=== PATIENT | male | born 1965 | race Caucasian/White ===

== ENCOUNTER 2021-12-11 10:08 | Emergency (ER) | payer OTHER ==
--- NOTE | 2021-12-11 10:18 | ERPHSYRPT ---
- History of Present Illness Time Seen by Provider: 12/11/21 10:17 Source: patient Exam Limitations: no limitations Physician History: This is a 56-year-old obese diabetic white male has a history of peripheral neuropathy and has been on Metformin for approximately 1 month and was in our parking lot at the hospital when he fell on 2 occasions. Patient states that he does not know why he has been doing this for approximately 3 months intermittently. He was here today to see the access services librarian for evaluation of his bilateral feet peripheral neuropathy. The only new medication is Metformin that he is been on for approximately 1 month. Patient denies chest pain. He denies shortness of breath. He has no abdominal pain. He has no headache. Patient does not recall all the events after he fell. He did hit his head. He denies neck pain. He denies back pain. In the distant past he said he had a cardiac catheterization. He did not receive any stents. He said no heart surgery. He does not see a extruder tender. Witnessed: bystander Prior Episodes: single episode today, recent history Timing/Duration: today Precipitating Factors: unknown Context: standing Loss of Consciousness: no loss of consciousness Charcter of event(s): other (Syncopal episode) Allergies/Adverse Reactions: acetaminophen [From Lortab] Allergy (Mild, Verified 12/11/21 10:22) hydrocodone [From Lortab] Allergy (Mild, Verified 12/11/21 10:22) Travel Risk - International Travel Have you traveled outside of the country in past 3 weeks: No - Coronavirus Screening Are you exhibiting any of the following symptoms?: No Close contact with a COVID-19 positive Pt in past 14-21 Days: No - Past Medical History Pertinent Past Medical History: Yes - Past Surgical History Past Surgical History: Yes Significant Family History: no pertinent family hx - Review of Systems Constitutional: Weakness Eyes: No Symptoms Ears, Nose, & Throat: No Symptoms Respiratory: No Symptoms Cardiac: No Symptoms Abdominal/Gastrointestinal: No Symptoms Genitourinary Symptoms: No Symptoms Musculoskeletal: No Symptoms Skin: No Symptoms Neurological: No Symptoms Psychological: No Symptoms Endocrine: No Symptoms Hematologic/Lymphatic: No Symptoms Immunological/Allergic: No Symptoms All Other Systems: Reviewed and Negative Physical Exam - Nursing Vital Signs Nursing Vital Signs: Initial Vital Signs Temperature 98.0 F 12/11/21 10:08 Pulse Rate 101 H 12/11/21 10:08 Respiratory Rate 18 12/11/21 10:08 Blood Pressure 106/69 12/11/21 10:08 O2 Sat by Pulse Oximetry 96 12/11/21 10:08 Pain Scale Pain Intensity 2 - [place] Coma Scale Best Eye Response (Gracie): (4) open spontaneously Best Verbal Response (Gracie): (5) oriented Best Motor Response ([place]): (6) obeys commands [place] Total: 15 - Physical Exam General Appearance: no apparent distress, alert, anxiety, obese Eye Exam: bilateral eye: normal inspection, PERRL, EOMI Ears, Nose, Throat Exam: normal ENT inspection, moist mucous membranes Neck Exam: normal inspection, non-tender, supple, full range of motion Respiratory: normal breath sounds, lungs clear, airway intact, No chest tenderness, No respiratory distress Cardiovascular: regular rate/rhythm, normal heart sounds, normal peripheral pulses Gastrointestinal: soft, normal bowel sounds, No tenderness, No guarding Rectal Exam: not done Back Exam: normal inspection, normal range of motion, No CVA tenderness Extremity Exam: normal inspection, normal range of motion, pelvis stable Mental Status: alert, oriented x 3, 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 Exam: normal hearing, normal speech, PERRL, tongue midline Coordination/Gait: normal finger to nose Motor/Sensory: no motor deficit, no sensory deficit, no pronator drift Skin Exam: abrasion (Right forehead) SpO2 Interpretation: normal O2 Delivery: Room Air - Course Nursing assessment & vital signs reviewed: Yes Ordered Tests: Active Orders 24 hr Category Date Time Status Minister Of Religion STAT Care 12/11/21 10:22 Active Clean Catch Urine Specimen STAT Care 12/11/21 10:21 Active EKG-ER Only STAT Care 12/11/21 10:21 Active IV Insertion STAT Care 12/11/21 10:21 Active POCT Glucose Check STAT Care 12/11/21 10:21 Active Pulse Oximetry (ED) STAT Care 12/11/21 10:21 Active HEAD WITHOUT CONTRAST [CT] Stat Exams 12/11/21 10:22 Completed CBC W DIFF Stat Lab 12/11/21 10:30 Completed CMP Stat Lab 12/11/21 10:30 Completed ETHYL ALCOHOL Stat Lab 12/11/21 10:30 Completed TROPONIN Q3H Lab 12/11/21 10:30 Completed TROPONIN Q3H Lab 12/11/21 13:30 Received TROPONIN Q3H Lab 12/11/21 16:30 Ordered TROPONIN Q3H Lab 12/11/21 19:30 Ordered TROPONIN Q3H Lab 12/11/21 22:30 Ordered UA W/RFX UR CULTURE Stat Lab 12/11/21 12:15 Completed Urine Triage Profile Stat Lab 12/11/21 12:11 Completed Lab/Rad Data: Laboratory Result Diagrams 12/11/21 10:30 12/11/21 10:30 Laboratory Results 12/11/21 12/11/21 12/11/21 Range/Units 12:15 12:11 10:30 WBC (4.0-10.5) K/mm3 RBC (4.1-5.6) M/mm3 Hgb (12.5-18.0) gm/dl Hct (42-50) % MCV (78-100) fl MCH (26-32) pg MCHC (32-36) g/dl RDW (11.5-14.0) % Plt Count (150-450) K/mm3 MPV (7.5-11.0) fl Gran % (36.0-66.0) % Eos # (Auto) (0-0.5) Absolute Lymphs (auto) (1.0-4.6) Absolute Monos (auto) (0.0-1.3) Lymphocytes % (24.0-44.0) % Monocytes % (0.0-12.0) % Eosinophils % (0.00-5.0) % Basophils % (0.0-0.4) % Absolute Granulocytes (1.4-6.9) Basophils # (0-0.4) Sodium (137-145) mmol/L Potassium (3.5-5.1) mmol/L Chloride (98-107) mmol/L Carbon Dioxide (22-30) mmol/L Anion Gap (5-15) MEQ/L BUN (9-20) mg/dL Creatinine (0.66-1.25) mg/dL Estimated GFR ML/MIN Glucose (74-106) mg/dL Calcium (8.4-10.2) mg/dL Total Bilirubin (0.2-1.3) mg/dL AST (17-59) U/L ALT (0-50) U/L Alkaline Phosphatase (38-126) U/L Troponin I < 0.012 (0.000-0.034) ng/mL Serum Total Protein (6.3-8.2) g/dL Albumin (3.5-5.0) g/dL Urine Color [place] (YELLOW) Urine Appearance SLIGHTLY CLOUDY (CLEAR) Urine pH 5.0 (5-6) Ur Specific [place] 1.027 (1.005-1.025) Urine Protein 30 (Negative) Urine Ketones SMALL (NEGATIVE) Urine Blood NEGATIVE (0-5) Har[place]/ul Urine Nitrite NEGATIVE (NEGATIVE) Urine Bilirubin NEGATIVE (NEGATIVE) Urine Urobilinogen NEGATIVE (0-1) mg/dL Ur Leukocyte Esterase NEGATIVE (NEGATIVE) Urine WBC (Auto) 0-2 (0-5) /HPF Urine RBC (Auto) NONE SEEN (0-2) /HPF U Hyaline Cast (Auto) 6-10 (0-2) /LPF U Epithel Cells (Auto) NONE (FEW) /HPF Urine Bacteria (Auto) NONE (NEGATIVE) /HPF Urine Mucus (Auto) SLIGHT (NEGATIVE) /HPF Urine Culture Reflexed NO (NO) Urine Glucose NEGATIVE (NEGATIVE) mg/dL Urine Opiates Level NEGATIVE (NEGATIVE) Ur Methadone NEGATIVE (NEGATIVE) Urine Barbiturates NEGATIVE (NEGATIVE) Ur Phencyclidine (PCP) NEGATIVE (NEGATIVE) Urine Amphetamine NEGATIVE (NEGATIVE) U Benzodiazepine Level NEGATIVE (NEGATIVE) Urine Cocaine NEGATIVE (NEGATIVE) Urine Marijuana (THC) NEGATIVE (NEGATIVE) Ethyl Alcohol (0-10) mg/dL 12/11/21 12/11/21 Range/Units 10:30 10:30 WBC 4.6 (4.0-10.5) K/mm3 RBC 4.60 (4.1-5.6) M/mm3 Hgb 14.8 (12.5-18.0) gm/dl Hct 43.0 (42-50) % MCV 93.5 (78-100) fl MCH 32.2 H (26-32) pg MCHC 34.4 (32-36) g/dl RDW 12.6 (11.5-14.0) % Plt Count 266 (150-450) K/mm3 MPV 9.5 (7.5-11.0) fl Gran % 45.8 (36.0-66.0) % Eos # (Auto) 0.10 (0-0.5) Absolute Lymphs (auto) 2.07 (1.0-4.6) Absolute Monos (auto) 0.32 (0.0-1.3) Lymphocytes % 44.7 H (24.0-44.0) % Monocytes % 6.9 (0.0-12.0) % Eosinophils % 2.2 (0.00-5.0) % Basophils % 0.4 (0.0-0.4) % Absolute Granulocytes 2.12 (1.4-6.9) Basophils # 0.02 (0-0.4) Sodium 140 (137-145) mmol/L Potassium 4.8 (3.5-5.1) mmol/L Chloride 104 (98-107) mmol/L Carbon Dioxide 20 L (22-30) mmol/L Anion Gap 20.6 H (5-15) MEQ/L BUN 17 (9-20) mg/dL Creatinine 1.19 (0.66-1.25) mg/dL Estimated GFR > 60.0 ML/MIN Glucose 113 H (74-106) mg/dL Calcium 9.2 (8.4-10.2) mg/dL Total Bilirubin 0.40 (0.2-1.3) mg/dL AST 68 H (17-59) U/L ALT 71 H (0-50) U/L Alkaline Phosphatase 113 (38-126) U/L Troponin I (0.000-0.034) ng/mL Serum Total Protein 7.5 (6.3-8.2) g/dL Albumin 4.7 (3.5-5.0) g/dL Urine Color (YELLOW) Urine Appearance (CLEAR) Urine pH (5-6) Ur Specific [place] (1.005-1.025) Urine Protein (Negative) Urine Ketones (NEGATIVE) Urine Blood (0-5) Har[place]/ul Urine Nitrite (NEGATIVE) Urine Bilirubin (NEGATIVE) Urine Urobilinogen (0-1) mg/dL Ur Leukocyte Esterase (NEGATIVE) Urine WBC (Auto) (0-5) /HPF Urine RBC (Auto) (0-2) /HPF U Hyaline Cast (Auto) (0-2) /LPF U Epithel Cells (Auto) (FEW) /HPF Urine Bacteria (Auto) (NEGATIVE) /HPF Urine Mucus (Auto) (NEGATIVE) /HPF Urine Culture Reflexed (NO) Urine Glucose (NEGATIVE) mg/dL Urine Opiates Level (NEGATIVE) Ur Methadone (NEGATIVE) Urine Barbiturates (NEGATIVE) Ur Phencyclidine (PCP) (NEGATIVE) Urine Amphetamine (NEGATIVE) U Benzodiazepine Level (NEGATIVE) Urine Cocaine (NEGATIVE) Urine Marijuana (THC) (NEGATIVE) Ethyl Alcohol 95 H (0-10) mg/dL - Progress Progress: improved, re-examined Progress Note: 12/11/21 11:00 CAT scan of the head without contrast shows no acute intracranial abnormality. 12/11/21 13:42 Patient states that he is feeling much better now. He has no chest pain. He is not dizzy. He has no shortness of breath and no abdominal pain. Counseled pt/family regarding: lab results, diagnosis, need for follow-up, rad results - Departure Departure Disposition: Home Clinical Impression: Syncopal episodes Condition: Stable Critical Care Time: No Referrals: APRIL CHRISTIANSON MD [Primary Care Provider] - Follow up/PCP as directed Additional Instructions: Drink plenty of fluids. Avoid alcohol use. Follow-up with your primary care physician for further evaluation of your episodes of syncope. Follow-up with your access services librarian for further evaluation management of your peripheral neuropathy.
[2021-12-11 10:38] LABS: Absolute Neutrophil Ct (ANC) 2.12 (1.4-6.9); Basophil (Absolute #) 0.02 (0-0.4); Eosinophil % 2.2 % (0.00-5.0); Hemoglobin 14.8 gm/dl (12.5-18.0); Lymphocyte (Absolute #) 2.07 (1.0-4.6); Lymphocytes % 44.7 % (24.0-44.0); Mean Cell Volume 93.5 fl (78-100); Mean Corpuscular Hemoglobin 32.2 pg (26-32); Mean Corpuscular Hgb Concent. 34.4 g/dl (32-36); Mean Platelet Volume 9.5 fl (7.5-11.0); Monocyte (Absolute #) 0.32 (0.0-1.3); Monocytes % 6.9 % (0.0-12.0); Neutrophil % 45.8 % (36.0-66.0); Platelet Count 266 K/mm3 (150-450); Red Cell Distribution Width 12.6 % (11.5-14.0); White Blood Count 4.6 K/mm3 (4.0-10.5)
--- NOTE | 2021-12-11 10:46 | XRAY ---
Indication: Syncope. Multiple contiguous axial images obtained through the head without contrast. Comparison: November 22, 2010. Normal appearing brain parenchyma, ventricles, and bony calvarium for patient's age. Visualized paranasal sinuses and mastoid air cells are clear. Impression: Continued normal CT head without contrast exam.
[2021-12-11 10:49] LABS: ALBUMIN 4.7 g/dL (3.5-5.0); ALKALINE PHOSPHATASE 113 U/L (38-126); ANION GAP 20.6 MEQ/L (5-15); BLOOD UREA NITROGEN 17 mg/dL (9-20); CHLORIDE 104 mmol/L (98-107); Calcium 9.2 mg/dL (8.4-10.2); Carbon Dioxide 20 mmol/L (22-30); Creatinine 1 1.19 mg/dL (0.66-1.25); EST GLOMERULAR FILTRATION RATE > 60.0 ML/MIN; ETHYL ALCOHOL 95 mg/dL (0-10); Glucose 113 mg/dL (74-106); Potassium 4.8 mmol/L (3.5-5.1); SGOT/AST 68 U/L (17-59); SGPT/ALT 71 U/L (0-50); SODIUM 140 mmol/L (137-145); Total Protein 7.5 g/dL (6.3-8.2)
[2021-12-11 12:15] VITALS: O2SAT 98
[2021-12-11 13:06] VITALS: BP 102/61; PULSE 70
[2021-12-11 13:33] LABS: Amphetamine,Urine NEGATIVE (NEGATIVE); Barbiturate,Urine NEGATIVE (NEGATIVE); Benzodiazepine,Urine NEGATIVE (NEGATIVE); Cocaine,Urine NEGATIVE (NEGATIVE); Methadone,Urine NEGATIVE (NEGATIVE); Opiate,Urine NEGATIVE (NEGATIVE); PCP,Urine NEGATIVE (NEGATIVE); THC,Urine NEGATIVE (NEGATIVE)
[2021-12-11 13:48] LABS: Appearance SLIGHTLY CLOUDY (CLEAR); Bilirubin NEGATIVE (NEGATIVE); Blood NEGATIVE Ery/ul (0-5); Glucose NEGATIVE (NEGATIVE); Ketones SMALL (NEGATIVE); Leukocyte Esterase NEGATIVE (NEGATIVE); Mucus SLIGHT /HPF (NEGATIVE); Nitrite NEGATIVE (NEGATIVE); Protein,Urine Dip 30 (Negative); RBC NONE SEEN /HPF (0-2); Specific Gravity 1.027 (1.005-1.025); Urobilinogen NEGATIVE mg/dL (0-1); WBC 0-2 /HPF (0-5)
== END 2021-12-11 14:00 | disposition home or self-care (01) ==
LOC: ED 10:08
DX: R55 Syncope and collapse (principal); W18.39XA Other fall on same level, initial encounter; Z91.81 History of falling; Y93.01 Activity, walking, marching and hiking; Y92.481 Parking lot as the place of occurrence of the external cause; Z79.899 Other long term (current) drug therapy
CPT/HCPCS: 36000; 36415; 70450; 80053; 80307; 81001; 84484; 85025; 93005; 93041; 94760; 99284; G0480